=== PATIENT | female | born 1935 | race Native Hawaiian/Other Pacific Islander ===

== ENCOUNTER 2019-07-24 11:43 | Outpatient (CLI) | payer OTHER ==
[2019-07-24 12:33] LABS: PLATELET COUNT 186 K/uL (152-353)
[2019-07-24 12:37] LABS: POTASSIUM 4.1 mmol/L (3.6-5.2)
== END 2019-07-24 20:12 | disposition home or self-care (01) ==
LOC: LABW 11:43
PROVIDERS: Internal Medicine
DX: N18.3 Chronic kidney disease, stage 3 (moderate) (principal)
CPT/HCPCS: 36415; 80053; 81000; 82306; 82330; 82570; 83735; 83970; 84100; 84155; 85027

== ENCOUNTER 2019-10-25 11:50 | Outpatient (CLI) | payer OTHER ==
[2019-10-25 12:48] LABS: PLATELET COUNT 226 K/uL (152-353)
== END 2019-10-25 22:34 | disposition home or self-care (01) ==
LOC: LABW 11:50
PROVIDERS: Internal Medicine
DX: N18.3 Chronic kidney disease, stage 3 (moderate) (principal); R82.998 Other abnormal findings in urine
CPT/HCPCS: 36415; 80053; 81000; 82306; 82330; 82570; 83735; 83970; 84100; 84155; 85027; 87086; 87088

== ENCOUNTER 2021-10-12 12:37 | Emergency (ER) | payer OTHER ==
[~2021-10-12] VITALS: Ht 162.6 cm; Wt 67.1 kg
[2021-10-12 12:49] VITALS: TEMP 97.5
[2021-10-12 13:52] VITALS: BP 142/69
== END 2021-10-12 14:13 | disposition home or self-care (01) ==
LOC: ED 12:37
DX: S42.295A Other nondisplaced fracture of upper end of left humerus, initial encounter for closed fracture (principal); W18.39XA Other fall on same level, initial encounter; Y92.091 Bathroom in other non-institutional residence as the place of occurrence of the external cause
CPT/HCPCS: 99282

== ENCOUNTER 2021-10-26 12:28 | Outpatient (CLI) | payer OTHER | END 2021-10-26 19:54 | disposition home or self-care (01) | LOC: RAD 12:28 | PROVIDERS: ATTEND Physician Assistant | DX: M25.512 Pain in left shoulder (principal) ==

== ENCOUNTER 2021-11-23 13:22 | Outpatient (CLI) | payer OTHER | END 2021-11-23 19:02 | disposition home or self-care (01) | LOC: RAD 13:22 | PROVIDERS: ATTEND Physician Assistant | DX: S42.225A 2-part nondisplaced fracture of surgical neck of left humerus, initial encounter for closed fracture (principal); Y92.9 Unspecified place or not applicable ==